=== PATIENT | female | born 1980 | race Caucasian/White ===

== ENCOUNTER 2018-10-02 12:09 | Day surgery (SDC) | payer BC ==
[2018-10-01 16:13] VITALS: BMI 38.2
[~2018-10-02 12:09] MED LIST: ceFAZolin SODIUM 1 GM VIAL IVPB ONE
[2018-10-02] MEDS ORDERED: LIDOCAINE HCL/PF 2% SDV 5ML VIAL ONE (13:12)
[2018-10-02] MEDS ORDERED: PROPOFOL 20 ML ONE (13:12)
[2018-10-02] MEDS ORDERED: MIDAZOLAM HCL 2 MG/2 ML SINGLE DOSE VIAL ONE (13:12)
[2018-10-02] MEDS ORDERED: ONDANSETRON 4 MG/2 ML VIAL IVPUSH PRN (13:57)
[2018-10-02] MEDS ORDERED: LACTATED RINGERS SOLUTION 1,000 ML IV SCH (14:00)
--- NOTE | 2018-10-02 14:08 | HP ---
History & Physical Update - History History: No Change - Physical Physical: No Change - Assessment Assessment: No Change - Plan Plan: No Change Currently as noted:: For surgical TOP
[2018-10-02] MEDS ORDERED: ceFAZolin SODIUM 1 GM VIAL ONE (14:30)
[2018-10-02] MEDS ORDERED: ceFAZolin SODIUM 1 GM VIAL IVPB ONE (14:31)
[2018-10-02 15:06] VITALS: TEMP 98.3
--- NOTE | 2018-10-02 15:07 | OP ---
Operative Note - Note: Operative Date: 10/02/18 Pre-Operative Diagnosis: Surgical termination of pregancy Operation: Suction, D&C Findings: Small AV uterus, POC noted. No RPOC after procedure Post-Operative Diagnosis: Same as Pre-op Surgeon: Jose Elias Jones Anesthesiologist/AUDIT CONSULTANT: Anibal Joshi Anesthesia: General Specimens Removed: POC Estimated Blood Loss (mls): 30 Blood Volume Replaced (mls): 0 Fluid Volume Replaced (mls): 600 Operative Report Dictated: Yes
[2018-10-02 17:03] VITALS: BP 133/89; PULSE 96
--- NOTE | 2018-10-03 00:17 | OP ---
DATE OF OPERATION: 10/02/2018 PREOPERATIVE DIAGNOSIS: Surgical . POSTOPERATIVE DIAGNOSIS: Surgical . PROCEDURE: Suction dilation and curettage. SURGEON: Winnie Doran M.D. ANESTHESIOLOGIST: Anibal Joshi M.D. ANESTHESIA: General. COMPLICATIONS: None. ESTIMATED BLOOD LOSS: 30 mL. INTRAVENOUS FLUIDS: 600 mL. PATHOLOGY: Products of conception. FINDINGS: Examination under anesthesia revealed a small anteverted uterus, freely mobile within pelvis, no pelvic or adnexal masses. Products of conception were noted during suction curettage. No retained products of conception were observed at the end of the procedure. DESCRIPTION OF PROCEDURE: The patient was met preoperatively. Risks, benefits, and alternatives of surgery were discussed in detail. All questions were answered. The patient was then brought to the OR with the IV running. She was placed on the surgical table in the supine position. The general anesthesia was achieved without difficulty. The patient was then placed in a dorsal lithotomy position using adjustable Isaac stirrups. She was examined under anesthesia with the findings as described above. The patient was then prepped and draped in the usual sterile fashion. A timeout procedure was conducted as per standard protocol. A sterile speculum was introduced inside the patient's vagina with good visualization of the cervix. The cervix was grasped with a single-toothed tenaculum. The cervical os was dilated to accommodate a size 23 Núñez dilator. A 7 mm suction curet was then used to evacuate the uterine contents. Once the suction curettage was completed, a sharp curet was introduced into the uterine cavity and no retained products of conception were noted. At that point, all of the instruments were removed from the patient. Sponge, lap, and needle counts were correct. Good hemostasis was confirmed. The patient was returned to supine position. She was transferred to recovery room, awake and in stable condition. WINNIE DORAN M.D. MINE/[id number]
--- NOTE | 2018-10-04 15:25 | PATH ---
Surgical Pathology Report Patient Name: ROBLES CHRISTIAN [facility]. Rec. #: [id number] /Age/Gender: 1980 (Age: 38) / F Account: [id number] Location: [facility] SURGICAL Taken: 10/02/2018 Received: 10/03/2018 Reported: 10/04/2018 Physicians: Jose Elias Jones M.D. Specimen(s) Received PRODUCTS OF CONCEPTION Clinical History Unwanted Final Diagnosis PRODUCTS OF CONCEPTION, SUCTION DILATION AND CURETTAGE: IMMATURE CHORIONIC VILLI, DECIDUA, AND GESTATIONAL ENDOMETRIUM CONSISTENT WITH PRODUCTS OF CONCEPTION. BENIGN CERVICAL SQUAMOUS MUCOSA. Electronically Signed Gaby Palma M.D. Gross Description Received in formalin labeled "products of conception," is an 8.0 x 6.0 x 0.7 cm aggregate of dhillon red soft tissue fragments. No definite villous tissue or somatic tissue is identified. A industrial relations representative portion is submitted in 3 cassettes. /10/03/2018 saudi10/03/2018
== END 2018-10-02 17:10 | disposition home or self-care (01) ==
LOC: JASU-SURG 12:09
PROVIDERS: ATTEND Obstetrics & Gynecology
PROC: 10A07ZZ Abortion of Products of Conception, Via Natural or Artificial Opening (ICD-10-PCS; principal; 2018-10-02 13:45)
DX: Z33.2 Encounter for elective termination of pregnancy (principal)
CPT/HCPCS: 86850; 86900; 86901; 88304-TC; 94760

== ENCOUNTER 2019-01-15 13:25 | Day surgery (SDC) | payer BC ==
[2019-01-14 16:14] VITALS: BMI 44.9
[2019-01-15] MEDS ORDERED: MIDAZOLAM HCL 2 MG/2 ML SINGLE DOSE VIAL ONE (14:29)
[2019-01-15] MEDS ORDERED: DEXAMETHASONE SOD PHOSPHATE 4 MG/1 ML VIAL ONE (14:36)
[2019-01-15] MEDS ORDERED: PROPOFOL 20 ML ONE (14:39)
[2019-01-15] MEDS ORDERED: ROCURONIUM BROMIDE 50 MG/5 ML VIAL ONE (14:40)
[2019-01-15] MEDS ORDERED: GLYCOPYRROLATE 0.2 MG/1 ML VIAL ONE (15:00)
[2019-01-15] MEDS ORDERED: NEOSTIGMINE METHYLSULFATE 0.5 MG/ML - 10 ML MDV ONE (15:00)
[2019-01-15] MEDS ORDERED: KETOROLAC TROMETHAMINE 30 MG/1 ML VIAL ONE (15:05)
[2019-01-15] MEDS ORDERED: ONDANSETRON 4 MG/2 ML VIAL IVPUSH PRN (15:11)
[2019-01-15] MEDS ORDERED: oxyCODONE HCL 5 MG TABLET PO PRN (15:11)
[2019-01-15] MEDS ORDERED: LACTATED RINGERS SOLUTION 1,000 ML IV SCH (15:15)
[2019-01-15] MEDS ORDERED: ceFAZolin SODIUM 1 GM VIAL IVPB ONE (15:40)
[2019-01-15] MEDS ORDERED: BUPIVACAINE HCL/PF 0.5% (5MG/ML) 10 ML VIAL IJ ONE (16:06)
--- NOTE | 2019-01-15 17:25 | OP ---
Operative Note - Note: Operative Date: 01/15/19 Pre-Operative Diagnosis: sterilization, obesity Operation: Laparoscopy, bilateral salpingectomy, excision of left ovarian mass Findings: Normal uterus, normal fallopian tubes, normal left ovary, firm and complex right ovarian mass ~2cm Post-Operative Diagnosis: Other (sterilization, obesity, right adnexal mass) Surgeon: Jose Elias Jones Feed Grinder: Teofilo Santizo Anesthesiologist/WEB CONTENT PRODUCER: Robson Frias Anesthesia: General Specimens Removed: Left and right Fallopian tubes, right ovarian mass Estimated Blood Loss (mls): 10 Drains & Tubes with Location: [place] Cath Drains, Volume Out (mls): 75 Blood Volume Replaced (mls): 0 Fluid Volume Replaced (mls): 800 Operative Report Dictated: Yes
[2019-01-15 18:56] VITALS: BP 114/70; PULSE 97; TEMP 97.8
--- NOTE | 2019-01-16 01:02 | OP ---
DATE OF OPERATION: 01/15/2019 PREOPERATIVE DIAGNOSIS: Sterilization, morbid obesity. POSTOPERATIVE DIAGNOSIS: Sterilization, morbid obesity, right adnexal mass. PROCEDURE: Laparoscopy, bilateral salpingectomy, excision of the left ovarian mass. SURGEON: Jose Elias Jones M.D. DIRECTOR POST: Dara Santizo M.D. ANESTHESIOLOGIST: Robson Frias M.D. ANESTHESIA: General. COMPLICATIONS: None. ESTIMATED BLOOD LOSS: 10 mL INTRAVENOUS FLUIDS: 800 mL URINE OUTPUT: 75 mL of clear urine at the end of the procedure FINDINGS: Examination under anesthesia was performed prior to surgery and revealed a normal cervix with a small anteverted uterus. Pelvic or adnexal structures could not be palpated due to patient's body habitus. During laparoscopy, the uterus was noted to be normal. Both fallopian tubes were noted to be normal. The left ovary was also normal and unremarkable. The right ovary had an exophytic solid and complex appearing ovarian mass. The visualized segments of the bowel, liver, and stomach appear to be within normal limits. DESCRIPTION OF PROCEDURE: The patient was met preoperatively. Risks, benefits, and alternatives of surgery were discussed in details. All questions were answered. The patient asked appropriate questions, and all questions were answered to her satisfaction. The patient then requested to proceed with surgery. She was brought to the OR with the IV running. The patient was placed on a surgical table in the supine position. The general endotracheal anesthesia was achieved without difficulty. The patient was then placed in a dorsal lithotomy position using adjustable Isaac stirrups. She was examined under anesthesia with the findings as described above. The patient was then prepped and draped in the usual sterile fashion. A timeout procedure was conducted as per standard protocol. A sterile speculum was then introduced inside the vagina. The cervix was visualized. The endocervical canal was dilated to accommodate a size 15 Núñez dilator. A HUMI uterine manipulator was then introduced without complications using a sterile technique. A speculum was then removed from the patient. A Mosley catheter was then inserted inside the bladder with the sterile technique and left to drain to gravity. The surgeons then regloved and proceeded with the laparoscopy. A 5-mm intraumbilical incision was made with the knife. A Veress needle was introduced through the umbilical incision. The introduction of the Veress needle was not successful, and the Veress needle was removed. At that point, an Optiview trocar was advanced under direct visualization through the umbilical incision. Atraumatic placement was confirmed. Once the trocar was placed, and the placement was confirmed, pneumoperitoneum was achieved without difficulty. Intraabdominal pressure was limited to 20 mmHg. Survey of the abdomen and pelvis revealed a large amount of adipose tissue around the peritoneal cavity, bowel, and anterior abdominal wall. Visualized segments of bowel, liver, and stomach appeared to be within normal limits. The uterus was noted to be normal and slightly anteverted. The fallopian tubes were within normal limits. The left ovary appeared to be unremarkable. The right ovary contained an exophytic 2-cm complex mass. At that point, a 5-mm incision was made in the right lower quadrant of the patient's abdomen. A 5-mm trocar was introduced without complications under direct visualization. A 10-mm incision was then made in the left lower quadrant, and a 10-mm trocar was introduced under direct visualization. Both fallopian tubes were then excised using a LigaSure device. Good hemostasis was maintained. Afterwards, the right ovarian mass was carefully dissected away form the right ovary maintaining good hemostasis. The right ovarian mass was placed inside the endobag and retrieved completely. All of the tissue was sent to pathology for evaluation. Once again, good hemostasis was noted. At that point, the left lower quadrant incision was closed using a 0 Vicryl suture for the fascia. All of the instruments were removed from the patient. The pneumoperitoneum was introduced. Sponge, lap, needle, and instrument counts were correct. The skin incisions were closed using a 4-0 Biosyn suture with a subcutaneous stitch. The HUMI was removed from the patient. The patient was returned to supine position, and she was transferred to recovery room awake and in stable condition. Anila [id number]
--- NOTE | 2019-01-17 18:30 | PATH ---
Surgical Pathology Report Patient Name: APPLE CHRISTIAN [facility]. Rec. #: [id number] /Age/Gender: 1980 (Age: 38) / F Account: [id number] Location: [facility] SURGICAL Taken: 01/15/2019 Received: 01/16/2019 Reported: 01/17/2019 Physicians: Jose Elias Jones M.D. Specimen(s) Received A: RIGHT FALLOPIAN TUBE B: LEFT FALLOPIAN TUBE C: RIGHT OVARIAN MASS Clinical History Voluntary sterilization Final Diagnosis A. FALLOPIAN TUBE, RIGHT, LAPAROSCOPIC SALPINGECTOMY: FALLOPIAN TUBE WITH PARATUBAL CYST (INCLUDING FIMBRIATED END AND FULL LUMINAL PORTION). B. FALLOPIAN TUBE, LEFT, LAPAROSCOPIC SALPINGECTOMY: FALLOPIAN TUBE WITH PARATUBAL CYST (INCLUDING FIMBRIATED END AND FULL LUMINAL PORTION). C. OVARIAN CYST, RIGHT, CYSTECTOMY: CONSISTENT WITH BENIGN CYSTIC FOLLICLE. Electronically Signed Gaby Palma M.D. Gross Description A. Received in formalin labeled "right fallopian tube," is a 4.5 cm in length fimbriated fallopian tube. The outer surface is dhillon lezama and smooth. Sectioning reveals an unremarkable lumen. Benefits Advisor sections are submitted in 2 cassettes as follows: 1-fimbria; 2-cross section of fallopian tube. B. Received in formalin labeled "left fallopian tube," is a 5.5 cm in length fimbriated fallopian tube. The outer surface is dhillon lezama and smooth. Sectioning reveals an unremarkable lumen. Benefits Advisor sections are submitted in 2 cassettes as follows: 1-fimbria; 2-cross sections of fallopian tube. C. Received in formalin labeled "right ovarian cyst," is a 2.0 x 1.5 x 1.5 cm dhillon, intact cystic structure. The outer surfaces are dhillon and smooth. The lumen contains clear serous fluid. The inner lining is smooth. No excrescences are identified. The specimen is entirely submitted in 2 cassettes. 01/16/201901/16/2019
== END 2019-01-15 19:15 | disposition home or self-care (01) ==
LOC: JASU-SURG 13:25
PROVIDERS: ATTEND Obstetrics & Gynecology
PROC: 0UB04ZZ Excision of Right Ovary, Percutaneous Endoscopic Approach (ICD-10-PCS; 2019-01-15)
PROC: 0U574ZZ Destruction of Bilateral Fallopian Tubes, Percutaneous Endoscopic Approach (ICD-10-PCS; principal; 2019-01-15 15:00)
DX: Z30.2 Encounter for sterilization (principal); N83.201 Unspecified ovarian cyst, right side; E66.01 Morbid (severe) obesity due to excess calories
CPT/HCPCS: 84703; 86850; 86900; 86901; 88302-TC; 88304-TC; 94010; 94760

== ENCOUNTER 2019-03-04 18:31 | Emergency (ER) | payer BC ==
[2019-03-04 18:37] VITALS: BP 123/77; PULSE 99; TEMP 98.2; BMI 41.9
[2019-03-04] MEDS ORDERED: MECLIZINE HCL 25 MG TABLET (FP) PO ONE (20:05)
[2019-03-04] MEDS ORDERED: ONDANSETRON 4 MG/2 ML VIAL IVPUSH ONE (20:06)
[2019-03-04] MEDS ORDERED: SODIUM CHLORIDE 1,000 ML IV STA (20:06)
[2019-03-04] MEDS ORDERED: MECLIZINE HCL 12.5 MG TABLET ONE (20:13)
[2019-03-04 20:21] LABS: BASO % 1.1 % (0-2.0); EOS % 2.2 % (0-4.5); HEMATOCRIT 36.4 % (32.4-45.2); HEMOGLOBIN 12.2 GM/dL (10.7-15.3); LYMPH % 22.1 % (8-40); MCH 27.6 pg (25.7-33.7); MCHC 33.5 g/dl (32.0-36.0); MEAN CELL VOLUME 82.4 fl (80-96); MEAN PLT VOLUME 8.1 fl (7.5-11.1); MONO % 5.5 % (3.8-10.2); NEUT % 69.1 % (42.8-82.8); PLATELET COUNT 280 K/MM3 (134-434); RBC 4.41 M/mm3 (3.60-5.2); RDW 14.5 % (11.6-15.6); WHITE BLOOD COUNT 9.6 K/mm3 (4.0-10.0)
[2019-03-04] MEDS ORDERED: ONDANSETRON 4 MG/2 ML VIAL ONE (20:25)
[2019-03-04 20:47] LABS: ALBUMIN 3.2 g/dl (3.4-5.0); ALK PHOS 116 U/L (45-117); ANION GAP 6 MMOL/L (8-16); BILIRUBIN,TOTAL 0.2 mg/dL (0.2-1); BLOOD UREA NITROGEN 8 mg/dL (7-18); CALCIUM 8.1 mg/dL (8.5-10.1); CHLORIDE 107 mmol/L (98-107); CO2 27 mmol/L (21-32); CREATININE 0.7 mg/dL (0.55-1.3); GLUCOSE,RANDOM 99 mg/dL (74-106); INR 1.13 (0.83-1.09); POTASSIUM 4.3 mmol/L (3.5-5.1); PROTHROMBIN TIME (PATIENT) 13.3 SEC (9.7-13.0); SGOT/AST 18 U/L (15-37); SGPT/ALT 24 U/L (13-61); SODIUM 140 mmol/L (136-145); TOT PROT 6.7 g/dl (6.4-8.2)
[2019-03-04] MEDS ORDERED: METOCLOPRAMIDE HCL INJECTION 10 MG/2 ML VIAL IVPUSH ONE (23:28)
[2019-03-04] MEDS ORDERED: METOCLOPRAMIDE HCL INJECTION 10 MG/2 ML VIAL ONE (23:30)
--- NOTE | 2019-03-05 01:17 | PDOC ---
History of Present Illness - General Chief Complaint: Headache Stated Complaint: RIGHT SIDE NUMNESS Time Seen by Provider: 03/04/19 19:34 History Source: Patient Exam Limitations: No Limitations - History of Present Illness Timing/Duration: reports: other (she had c/o frontal headache since 5 am with dizziness) Past History - Past Medical History Allergies/Adverse Reactions: Allergies Allergy/AdvReac Type Severity Reaction Status Date / Time No Known Allergies Allergy Verified 03/04/19 18:37 Home Medications: Ambulatory Orders Citalopram Hydrobromide [Citalopram HBr] 10 mg PO DAILY 10/02/18 Ibuprofen [Motrin -] 600 mg PO TID PRN #21 tablet MDD 3 tabs 03/05/19 Meclizine HCl 25 mg PO QID PRN #21 tab.chew MDD 3 tabs 03/05/19 Asthma: Yes (EXERCISE INDUCED ASTHMA-DOES NOT RECALL LAST ATTACK) Cancer: No Cardiac Disorders: No CVA: No COPD: No CHF: No DVT: No Dementia: No Diabetes: No GI Disorders: No Disorders: Yes (RENAL COLIC) HTN: No Hypercholesterolemia: No Kidney Stones: Yes Liver Disease: No Psychiatric Problems: Yes (depression) Seizures: No Thyroid Disease: No - Surgical History Abdominal Surgery: No Appendectomy: No Cardiac Surgery: No Cholecystectomy: No Lung Surgery: No Neurologic Surgery: No Orthopedic Surgery: No - Suicide/Smoking/Psychosocial Hx Smoking Status: No Smoking History: Never smoked Have you smoked in the past 12 months: No Number of Cigarettes Smoked Daily: 0 Hx Alcohol Use: No Drug/Substance Use Hx: No Substance Use Type: None Hx Substance Use Treatment: No Review of Systems - Review of Systems Able to Perform ROS?: Yes Is the patient limited Yi proficient: No Constitutional: No: Symptoms Reported, See HPI, Chills, Diaphoresis, Fever, Loss of Appetite, Malaise, Night Sweats, Weakness, Weight Stable, Unintentional Wgt. Loss, Unexplained wgt Loss, Other HEENTM: No: Symptoms Reported, See HPI, Eye Pain, Blurred Vision, Tearing, Recent change in vision, Double Vision, Cataracts, Ear Pain, Ocular Prothesis, Ear Discharge, Nose Pain, Nose Congestion, Tinnitus, Nose Bleeding, Hearing Loss , Throat Pain, Throat Swelling, Mouth Pain, Dental Problems, Difficulty Swallowing, Mouth Swelling, Other Respiratory: No: Symptoms reported, See HPI, Cough, Orthopnea, Shortness of Breath, SOB with Exertion, SOB at Rest, Stridor, Wheezing, Productive cough, Hemoptysis, Other Cardiac (ROS): No: Symptoms Reported, See HPI, Chest Pain, Edema, Irregular Heart Rate, Lightheadedness, Palpitations, Syncope, Chest Tightness, Other ABD/GI: No: Symptoms Reported, See HPI, Abdominal Distended, Abd. Pain w/ defecation, Blood Streaked Bowels, Constipated, Diarrhea, Difficulty Swallowing , Nausea, Poor Appetite, Poor Fluid Intake, Rectal Bleeding, Vomiting, Indigestion, Abdominal cramping, Tarry Stools, Other : No: Symptoms Reported, See HPI, Burning, Dysuria, Discharge, Frequency, Flank Pain, Hematuria, Incontinence, Pain, Urgency, Testicular Mass, Testicular Swelling, Lesions, Testicular Pain, Other Musculoskeletal: No: Symptoms Reported, See HPI, Back Pain, Gout, Joint Pain, Joint Swelling, Muscle Pain, Muscle Weakness, Neck Pain, Joint Stiffness, Other Integumentary: No: Symptoms Reported, See HPI, Bruising, Change in Color, Change in Hair/Nails, Dryness, Erythema, Flushing, Lesions, Lumps, Pallor, Pruritus, Rash, Sweating, Other Neurological: Yes: Headache, Dizziness, Other (she felt the room spin and had difficulty walking in a straight line) Endocrine: No: Symptoms Reported, See HPI, Excessive Sweating, Flushing, Intolerance to Cold, Intolerance to Heat, Increased Hunger, Increased Thirst, Increased Urine, Unexplained Weight Gain, Unexplained Weight Loss, Change in Weight, Other Hematologic/Lymphatic: No: Symptoms Reported, See HPI, Anemia, Blood Clots, Easy Bleeding, Easy Bruising, Bleeding Diathesis, Lymph Node Abnormalities, Swollen Glands, Other *Physical Exam - Vital Signs Last Vital Signs Temp Pulse Resp BP Pulse Ox 98.2 F 99 H 20 123/77 98 03/04/19 18:33 03/04/19 18:33 03/04/19 18:33 03/04/19 18:33 03/04/19 18:33 - Physical Exam General Appearance: Yes: Appropriately Dressed, Obese HEENT: positive: EOMI, ELIDA, Normal ENT Inspection, Normal Voice Neck: positive: Supple Respiratory/Chest: positive: Lungs Clear Cardiovascular: positive: Regular Rhythm, Regular Rate Gastrointestinal/Abdominal: positive: Normal Bowel Sounds, Soft Musculoskeletal: positive: Normal Inspection Extremity: positive: Normal Inspection, Normal Range of Motion Integumentary: positive: Normal Color, Warm Neurologic: positive: cook box filler II-XII NML intact, Fully Oriented, Alert, Normal Response, Motor Strength 03/30 ED Treatment Course - LABORATORY CBC & Chemistry Diagram: 03/04/19 20:10 03/04/19 20:10 - ADDITIONAL ORDERS Additional order review: Laboratory Results 03/04/19 03/04/19 03/04/19 20:10 20:10 20:10 PT with INR 13.30 H INR 1.13 H Sodium 140 Potassium 4.3 Chloride 107 Carbon Dioxide 27 Anion Gap 6 L BUN 8 Creatinine 0.7 Creat Clearance w eGFR 94.16 Random Glucose 99 Calcium 8.1 L Total Bilirubin 0.2 AST 18 ALT 24 Alkaline Phosphatase 116 Total Protein 6.7 Albumin 3.2 L Serum , Qual Negative 03/04/19 20:10 RBC 4.41 MCV 82.4 MCHC 33.5 RDW 14.5 MPV 8.1 Neutrophils % 69.1 Lymphocytes % 22.1 D Monocytes % 5.5 Eosinophils % 2.2 Basophils % 1.1 - RADIOLOGY Radiology Studies Ordered: Category Date Time Status HEAD CT WITHOUT CONTRAST [CT] Stat CT Scan 03/04/19 21:29 Completed - Medications Given in the ED: ED Medications Discontinued Medications Generic Name Dose Route Start Last Admin Trade Name Freq PRN Reason Stop Dose Admin Diphenhydramine HCl 25 mg 03/04/19 23:29 03/04/19 23:41 Benadryl Injection - IVPUSH 03/04/19 23:30 25 mg ONCE ONE Administration Sodium Chloride 1,000 mls @ 1,000 mls/hr 03/04/19 20:06 03/04/19 20:18 Normal Saline - IV 03/04/19 21:05 1,000 mls/hr ASDIR STA Administration Meclizine HCl 25 mg 03/04/19 20:05 03/04/19 20:18 Antivert - PO 03/04/19 20:06 25 mg ONCE ONE Administration Metoclopramide HCl 10 mg 03/04/19 23:28 03/04/19 23:41 Reglan Injection - IVPUSH 03/04/19 23:29 10 mg ONCE ONE Administration Ondansetron HCl 4 mg 03/04/19 20:06 03/04/19 20:37 Zofran Injection IVPUSH 03/04/19 20:07 4 mg ONCE ONE Administration Medical Decision Making - Medical Decision Making 03/05/19 02:12 pt had dizziness since waking this morning and felt the room spinning. She also had a frontal headache 'NIHSS was zero she had no drift,no ataxia on exam, no motor weakness,no confusion, no vomiting, no facial droop and no speech difficulties ct scn of head no acute intracraial pathology cbc and chemistries unremarkable no fever,no chills pt's symptoms resolved pt was eating and ambulating with ease and discharged home imp benign positional vertigo/plan see Dr Smalls this week *DC/Admit/Observation/Transfer Diagnosis at time of Disposition: Vertigo Headache Qualifiers: Headache type: unspecified Headache chronicity pattern: unspecified pattern Intractability: not intractable Qualified Code(s): R51 - Headache - Discharge Dispostion Disposition: HOME Condition at time of disposition: Stable - Prescriptions Prescriptions: Ibuprofen [Motrin -] 600 mg PO TID PRN #21 tablet MDD 3 tabs PRN Reason: Headache Meclizine HCl 25 mg PO QID PRN #21 tab.chew MDD 3 tabs PRN Reason: Vertigo - Referrals Referrals: Anastasia Cade MD [Primary Care Provider] - - Patient Instructions Printed Discharge Instructions: DI for Vertigo, DI for Headache Additional Instructions: please follow up with your physician this week please fruit or nut picker your medications at your pharmacy return for any worsening symptoms - Post Discharge Activity Forms/Work/School Notes: Back to Work
== END 2019-03-05 02:12 | disposition home or self-care (01) ==
LOC: JER 18:31
PROC: 3E0337Z Introduction of Electrolytic and Water Balance Substance into Peripheral Vein, Percutaneous Approach (ICD-10-PCS; principal; 2019-03-04)
PROC: 3E033GC Introduction of Other Therapeutic Substance into Peripheral Vein, Percutaneous Approach (ICD-10-PCS; 2019-03-04)
PROC: 3E033GC Introduction of Other Therapeutic Substance into Peripheral Vein, Percutaneous Approach (ICD-10-PCS; 2019-03-04)
PROC: 3E033GC Introduction of Other Therapeutic Substance into Peripheral Vein, Percutaneous Approach (ICD-10-PCS; 2019-03-04)
DX: R51 Headache (principal); R42 Dizziness and giddiness
CPT/HCPCS: 36415; 70450-TC; 80053; 84703; 85025; 85610; 99282-25; J7030

== ENCOUNTER 2019-08-19 15:46 | Emergency (ER) | payer BC ==
[2019-08-19 16:24] VITALS: BMI 39.9
--- NOTE | 2019-08-19 16:25 | PDOC ---
History of Present Illness - General Chief Complaint: Syncope/Near Syncope Stated Complaint: FALL Time Seen by Provider: 08/19/19 16:04 History Source: Patient Exam Limitations: No Limitations - History of Present Illness Initial Comments: 08/19/19 16:23 39 yo F, , PMH b/l salpingectomy with removal of 2 cm complex R ovarian mass (01/15/2019), reportedly benign cystic follicle on pathological examination , sports-induced asthma, depression, kidney stones s/p lithotripsy, cholelithiasis, hx vertigo, presenting after syncope. States that she was at work and had LOC, no prodromal symptoms, unsure how long she was down. States that she fell down and hit the back of her head. Endorses R sided SAUNDERS prior to syncope, worse after, associated with N w/o vomiting, photophobia, and phonophobia. Also reports "room spinning" sensation prior to syncope, which is ongoing. Denies history of migraines. Further reports intermittent RLQ pain for the past 2-3 weeks, currently feels this pain. Denies CP, SOB, back pain, urinary symptoms. Endorses hot/cold flashes and chronic constipation. LMP about 1 week ago. Past History - Past Medical History Allergies/Adverse Reactions: Allergies Allergy/AdvReac Type Severity Reaction Status Date / Time No Known Allergies Allergy Verified 03/04/19 18:37 Home Medications: Ambulatory Orders Citalopram Hydrobromide [Citalopram HBr] 10 mg PO DAILY 10/02/18 Ibuprofen [Motrin -] 600 mg PO TID PRN #21 tablet MDD 3 tabs 03/05/19 Meclizine HCl 25 mg PO QID PRN #21 tab.chew MDD 3 tabs 03/05/19 Meclizine HCl [Antivert -] 25 mg PO TID PRN #21 tablet MDD 3 08/19/19 Asthma: Yes (EXERCISE INDUCED ASTHMA-DOES NOT RECALL LAST ATTACK) Cancer: No Cardiac Disorders: No CVA: No COPD: No CHF: No DVT: No Dementia: No Diabetes: No GI Disorders: No Disorders: Yes (RENAL COLIC) HTN: No Hypercholesterolemia: No Kidney Stones: Yes Liver Disease: No Psychiatric Problems: Yes (depression) Seizures: No Thyroid Disease: No - Surgical History Abdominal Surgery: No Appendectomy: No Cardiac Surgery: No Cholecystectomy: No Lung Surgery: No Neurologic Surgery: No Orthopedic Surgery: No - Psycho Social/Smoking Cessation Hx Smoking Status: No Smoking History: Never smoked Have you smoked in the past 12 months: No Number of Cigarettes Smoked Daily: 0 Hx Alcohol Use: No Drug/Substance Use Hx: No Substance Use Type: None Hx Substance Use Treatment: No Review of Systems - Review of Systems Constitutional: Yes: Chills. No: Diaphoresis, Fever, Weakness HEENTM: No: Blurred Vision, Difficulty Swallowing Respiratory: No: Cough, Shortness of Breath Cardiac (ROS): Yes: Syncope. No: Chest Pain, Edema, Irregular Heart Rate, Lightheadedness ABD/GI: Yes: Constipated (chronic), Nausea. No: Abdominal Distended, Diarrhea, Difficulty Swallowing, Vomiting : No: Burning, Dysuria, Discharge, Frequency, Flank Pain, Hematuria Musculoskeletal: No: Back Pain, Neck Pain Integumentary: No: Symptoms Reported Neurological: Yes: Headache (R sided, photophobia, phonophobia), Dizziness. No : Numbness, Paresthesia, Weakness Endocrine: No: Symptoms Reported Hematologic/Lymphatic: No: Symptoms Reported *Physical Exam - Vital Signs Last Vital Signs Temp Pulse Resp BP Pulse Ox 98.3 F 87 18 133/101 H 100 08/19/19 15:58 08/19/19 15:58 08/19/19 15:58 08/19/19 15:58 08/19/19 15:58 - Physical Exam General Appearance: Yes: Nourished, Appropriately Dressed, Apparent Distress HEENT: positive: EOMI, ELIDA, Normal ENT Inspection Neck: positive: Trachea midline, Supple Respiratory/Chest: positive: Lungs Clear, Normal Breath Sounds. negative: Chest Tender, Respiratory Distress, Accessory Muscle Use Cardiovascular: positive: Regular Rhythm, Regular Rate Gastrointestinal/Abdominal: positive: Normal Bowel Sounds, Tender (RLQ, periumbilical), Soft Musculoskeletal: positive: Normal Inspection. negative: CVA Tenderness Extremity: positive: Normal Capillary Refill Integumentary: positive: Normal Color, Dry, Warm Neurologic: positive: cooker soda II-XII NML intact, Fully Oriented, Alert, Normal Mood/ Affect, Normal Response, Motor Strength 5/5, Finger to Nose, Other (b/l nystagmus) ED Treatment Course - LABORATORY CBC & Chemistry Diagram: 08/19/19 17:21 08/19/19 17:21 Medical Decision Making - Medical Decision Making 08/19/19 16:45 Concern for this RLQ considering history of 2cm complex R ovarian mass. Further concern considering syncope and head trauma for cardiac/neurological etiology. - CT head non con - CBC, CMP, coags, EKG, trop - UA, U preg - CT abd/pelvis pending Cr and test results - Reglan + fluids for headache pending results - ctm 08/19/19 17:20 EKG reviewed, sinus at 85 bpm. 08/19/19 19:20 TVUS normal, CT head normal. Patient continues to complain about headache, will give Reglan and Benadryl. 08/19/19 22:00 Patient signed out to Dr. Pizarro, f/u CT scan *DC/Admit/Observation/Transfer Diagnosis at time of Disposition: Vertigo Abdominal pain Qualifiers: Abdominal location: right lower quadrant Qualified Code(s): R10.31 - Right lower quadrant pain - Discharge Dispostion Disposition: HOME Condition at time of disposition: Stable - Prescriptions Prescriptions: Meclizine HCl [Antivert -] 25 mg PO TID PRN #21 tablet MDD 3 PRN Reason: Vertigo - Referrals Referrals: Anastasia Cade MD [Primary Care Provider] - - Patient Instructions Printed Discharge Instructions: DI for Vertigo, DI for Abdominal Pain-Adult Additional Instructions: please 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 your medication at your pharmacy please follow up with your regular physician - Post Discharge Activity Forms/Work/School Notes: Back to Work Discharge - Discharge Information Problems reviewed: Yes Clinical Impression/Diagnosis: Vertigo Abdominal pain Qualifiers: Abdominal location: right lower quadrant Qualified Code(s): R10.31 - Right lower quadrant pain Condition: Stable Disposition: HOME - Additional Discharge Information Prescriptions: Meclizine HCl [Antivert -] 25 mg PO TID PRN #21 tablet MDD 3 PRN Reason: Vertigo - Follow up/Referral Referrals: Anastasia Cade MD [Primary Care Provider] - - Patient Discharge Instructions Patient Printed Discharge Instructions: DI for Vertigo, DI for Abdominal Pain- Adult Additional Instructions: please 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 your medication at your pharmacy please follow up with your regular physician - Post Discharge Activity Work/Back to School Note: Back to Work
[2019-08-19] MEDS ORDERED: LACTATED RINGERS SOLUTION 1000 ML INFUS.BAG IV ONE (16:33)
[2019-08-19] MEDS ORDERED: METOCLOPRAMIDE HCL INJECTION 10 MG/2 ML VIAL IVPB ONE (16:33)
[2019-08-19] MEDS ORDERED: ACETAMINOPHEN 1000 MG/100 ML VIAL (NON FORMULARY) IVPB ONE (17:12)
[2019-08-19 17:21] LABS: PH,URINE 6.5 (5.0-8.0); URINE APPEARANCE CLEAR; URINE BILIRUBIN NEGATIVE (NEGATIVE); URINE COLOR YELLOW; URINE GLUCOSE (UA) NEGATIVE (NEGATIVE); URINE KETONE NEGATIVE (NEGATIVE); URINE LEUK ESTERASE TRACE (NEGATIVE); URINE NITRITE NEGATIVE (NEGATIVE); URINE PROTEIN NEGATIVE (NEGATIVE); URINE UROBILINOGEN 0.2 mg/dL (0.2-1.0)
[2019-08-19] MEDS ORDERED: ACETAMINOPHEN INJECTION 100 ML IVPB ONE (17:26)
[2019-08-19 17:45] LABS: BASO % 0.5 % (0-2.0); EOS % 2.8 % (0-4.5); HEMATOCRIT 37.1 % (32.4-45.2); HEMOGLOBIN 12.2 GM/dL (10.7-15.3); LYMPH % 22.3 % (8-40); MCH 27.4 pg (25.7-33.7); MEAN CELL VOLUME 83.1 fl (80-96); MEAN PLT VOLUME 8.4 fl (7.5-11.1); MONO % 5.1 % (3.8-10.2); NEUT % 69.3 % (42.8-82.8); PLATELET COUNT 267 K/MM3 (134-434); RBC 4.47 M/mm3 (3.60-5.2); RDW 14.5 % (11.6-15.6); WHITE BLOOD COUNT 9.4 K/mm3 (4.0-10.0)
--- NOTE | 2019-08-19 18:02 | PDOC ---
Attending Attestation - Resident Resident Name: Robert Mclaughlin - ED Attending Attestation I have performed the following: I have examined & evaluated the patient, The case was reviewed & discussed with the resident, I agree w/resident's findings & plan, Exceptions are as noted - HPI HPI: 08/19/19 18:02 this 39 yo female had a syncopal episode and RLQ tenderness today HPI she was at school and had had a persistent headache all day, but then became dizzy. She fell off the chair. She was on the floor in the school and school nurse was called. She says she still has some dizziness and persistent headache. She has no gross focal neural deficits. 08/19/19 19:23 this 39 -year-old female complaining of a daylong headache. Head normocephalic, atraumatic, no lacerations or hematomas noted. Eyes pupils are equal, reactive to light and accommodation ,eomi neck supple lungs cts b/l cvs [id number] abd protuberant skin warm and dry extremities no deformities neuro axox3,motor strength 5/5 b/l 08/19/19 22:48 - Physicial Exam PE: 08/19/19 22:06 please see the above physical exam - Medical Decision Making 08/19/19 18:02 psh s/p laparoscopic salpingectomy of RT and L fallopian rubes and removal of benign rt cystic follicle 08/19/19 19:26 CBC does not show any significant leukocytosis or anemia. Chemistries are unremarkable. Electrolytes are within normal limits, LFTs are unremarkable and her kidney function is normal. the head without contrast shows a normal CT scan of the head with no evidence of acute intracranial pathology. Transvaginal ultrasound is essentially normal pelvic sonogram The uterus is normal in size, no uterine masses are seen. Normal appearing endometrium of 7 mm thickness. The right ovary is normal size and texture with arterial flow documented. . There is a small cyst measuring 1.5 cm x 1.4 cm x 1 cm The left ovary could not be identified. 08/19/19 22:49 ct scan abd/pel w constrast: no SBO,no fluid collections,no pelvic masses, no lymphadenopathy cholilithiasis diffuse fatty liver mild splnomegaly no evidence of appendicitis or acute pathology within the abdomen or pelvis imp vertigo/pelvic discomfort negative head ct, no focal neuro deficits 08/19/19 22:57 RX meclizine sent to her phamacy
[2019-08-19 18:09] LABS: INR 1.1 (0.83-1.09)
[2019-08-19 18:10] LABS: ALBUMIN 3.5 g/dl (3.4-5.0); ALK PHOS 131 U/L (45-117); ANION GAP 7 MMOL/L (8-16); BILIRUBIN,TOTAL 0.2 mg/dL (0.2-1); CALCIUM 9.3 mg/dL (8.5-10.1); CHLORIDE 104 mmol/L (98-107); CO2 30 mmol/L (21-32); CREATININE 0.7 mg/dL (0.55-1.3); GLUCOSE,RANDOM 89 mg/dL (74-106); POTASSIUM 4.2 mmol/L (3.5-5.1); SGOT/AST 18 U/L (15-37); SGPT/ALT 28 U/L (13-61); SODIUM 141 mmol/L (136-145)
[2019-08-19 18:11] LABS: ACTIVATED PTT 32.5 SECONDS (25.2-36.5)
[2019-08-19 19:03] LABS: EPI CELLS 0.8 /HPF (0-5/HPF); HYALINE CASTS 0 /lpf (0-8); URINE BACTERIA FEW /hpf (NEGATIVE); URINE RBC 1.1 /hpf (0-4); URINE WBC 2.5 /hpf (0-5)
[2019-08-19] MEDS ORDERED: METOCLOPRAMIDE HCL INJECTION 10 MG/2 ML VIAL IVPUSH ONE (19:15)
[2019-08-19] MEDS ORDERED: METOCLOPRAMIDE HCL INJECTION 10 MG/2 ML VIAL ONE (19:36)
[2019-08-19] MEDS ORDERED: MECLIZINE HCL 25 MG TABLET (FP) PO ONE (19:38)
[2019-08-19] MEDS ORDERED: MECLIZINE HCL 25 MG TABLET (FP) ONE (20:04)
[2019-08-19 22:48] VITALS: BP 114/61; PULSE 70; TEMP 97.8
--- NOTE | 2019-08-19 23:01 | PDOC ---
*Physical Exam - Vital Signs Last Vital Signs Temp Pulse Resp BP Pulse Ox 97.8 F 70 20 114/61 98 08/19/19 22:45 08/19/19 22:45 08/19/19 22:45 08/19/19 22:45 08/19/19 22:45 ED Treatment Course - LABORATORY CBC & Chemistry Diagram: 08/19/19 17:21 08/19/19 17:21 - ADDITIONAL ORDERS Additional order review: Laboratory Results 08/19/19 08/19/19 08/19/19 17:21 17:21 17:21 PT with INR 13.00 INR 1.10 H PTT (Actin FS) 32.5 Sodium 141 Potassium 4.2 Chloride 104 Carbon Dioxide 30 Anion Gap 7 L BUN 9.0 Creatinine 0.7 Est GFR (CKD-EPI)AfAm 127.39 Est GFR (CKD-EPI)NonAf 109.91 Random Glucose 89 Calcium 9.3 Total Bilirubin 0.2 AST 18 ALT 28 Alkaline Phosphatase 131 H Troponin I < 0.02 Total Protein 7.0 Albumin 3.5 Lipase 100 Urine Color Urine Appearance Urine pH Ur Specific [place] Urine Protein Urine Glucose (UA) Urine Ketones Urine Blood Urine Nitrite Urine Bilirubin Urine Urobilinogen Ur Leukocyte Esterase Urine WBC (Auto) Urine RBC (Auto) Urine Casts (Auto) U Epithel Cells (Auto) Urine Bacteria (Auto) Urine HCG, Qual 08/19/19 08/19/19 16:10 16:10 PT with INR INR PTT (Actin FS) Sodium Potassium Chloride Carbon Dioxide Anion Gap BUN Creatinine Est GFR (CKD-EPI)AfAm Est GFR (CKD-EPI)NonAf Random Glucose Calcium Total Bilirubin AST ALT Alkaline Phosphatase Troponin I Total Protein Albumin Lipase Urine Color Yellow Urine Appearance Clear Urine pH 6.5 Ur Specific [place] 1.004 L Urine Protein Negative Urine Glucose (UA) Negative Urine Ketones Negative Urine Blood Negative Urine Nitrite Negative Urine Bilirubin Negative Urine Urobilinogen 0.2 Ur Leukocyte Esterase Trace Urine WBC (Auto) 2.5 Urine RBC (Auto) 1.1 Urine Casts (Auto) 0 U Epithel Cells (Auto) 0.8 Urine Bacteria (Auto) Few Urine HCG, Qual Negative 08/19/19 17:21 RBC 4.47 MCV 83.1 MCHC 33.0 RDW 14.5 MPV 8.4 Neutrophils % 69.3 Lymphocytes % 22.3 Monocytes % 5.1 Eosinophils % 2.8 Basophils % 0.5 - Medications Given in the ED: ED Medications Discontinued Medications Generic Name Dose Route Start Last Admin Trade Name [place] PRN Reason Stop Dose Admin Acetaminophen 1,000 mg 08/19/19 17:12 08/19/19 17:30 Ofirmev Injection - IVPB 08/19/19 17:13 1,000 mg ONCE ONE Administration Diphenhydramine HCl 25 mg 08/19/19 19:16 08/19/19 19:49 Benadryl Injection - IVPUSH 08/19/19 19:17 25 mg ONCE ONE Administration Lactated Ringer's 1,000 ml 08/19/19 16:33 08/19/19 17:25 Lactated Ringers Solution IV 08/19/19 16:34 1,000 ml ONCE ONE Administration Meclizine HCl 25 mg 08/19/19 19:38 08/19/19 20:13 Antivert - PO 08/19/19 19:39 25 mg ONCE ONE Administration Metoclopramide HCl 10 mg 08/19/19 16:33 08/19/19 17:32 Reglan Injection - IVPB 08/19/19 16:34 Not Given ONCE ONE Metoclopramide HCl 10 mg 08/19/19 19:15 08/19/19 19:49 Reglan Injection - IVPUSH 08/19/19 19:16 10 mg ONCE ONE Administration *DC/Admit/Observation/Transfer Diagnosis at time of Disposition: Vertigo Abdominal pain Qualifiers: Abdominal location: right lower quadrant Qualified Code(s): R10.31 - Right lower quadrant pain - Discharge Dispostion Disposition: HOME Condition at time of disposition: Stable - Prescriptions Prescriptions: Meclizine HCl [Antivert -] 25 mg PO TID PRN #21 tablet MDD 3 PRN Reason: Vertigo - Referrals Referrals: Anastasia Cade MD [Primary Care Provider] - - Patient Instructions Printed Discharge Instructions: DI for Vertigo, DI for Abdominal Pain-Adult Additional Instructions: please lemon picker your medication at your pharmacy please follow up with your regular physician - Post Discharge Activity Forms/Work/School Notes: Back to Work
--- NOTE | 2019-08-20 11:04 | EKG ---
Test Reason : Blood Pressure : / mmHG Vent. Rate : 085 BPM Atrial Rate : 085 BPM P-R Int : 156 ms QRS Dur : 084 ms QT Int : 368 ms P-R-T Axes : 019 032 020 degrees QTc Int : 437 ms NORMAL SINUS RHYTHM NORMAL ECG WHEN COMPARED WITH ECG OF 05-NOV-2012 08:53, NO SIGNIFICANT CHANGE WAS FOUND Confirmed by ALEJANDRO FRAUSTO MD ([id number]) on 08/20/2019 11:04:10 AM Referred By: Confirmed By:ALEJANDRO FRAUSTO MD
== END 2019-08-19 23:15 | disposition home or self-care (01) ==
LOC: JER 15:46
PROC: 3E033NZ Introduction of Analgesics, Hypnotics, Sedatives into Peripheral Vein, Percutaneous Approach (ICD-10-PCS; principal; 2019-08-19)
PROC: 3E033GC Introduction of Other Therapeutic Substance into Peripheral Vein, Percutaneous Approach (ICD-10-PCS; 2019-08-19)
PROC: 3E033GC Introduction of Other Therapeutic Substance into Peripheral Vein, Percutaneous Approach (ICD-10-PCS; 2019-08-19)
DX: S09.8XXA Other specified injuries of head, initial encounter (principal); R55 Syncope and collapse; R42 Dizziness and giddiness; R51 Headache; W07.XXXA Fall from chair, initial encounter; R10.31 Right lower quadrant pain; Y93.89 Activity, other specified; Y92.219 Unspecified school as the place of occurrence of the external cause; Y99.0 Civilian activity done for income or pay; Z87.09 Personal history of other diseases of the respiratory system; Z87.442 Personal history of urinary calculi; Z90.79 Acquired absence of other genital organ(s)
CPT/HCPCS: 36415; 70450-TC; 74177-TC; 76830-TC; 80053; 81003; 83690; 84484; 84703; 85025; 85610; 85730; 93005; 93010; 99284-25; J0131

== ENCOUNTER 2020-12-20 22:06 | Emergency (ER) | payer BC, OTHER ==
[2020-12-20 22:10] VITALS: BP 161/92; PULSE 92; TEMP 98.6; BMI 46.5
[2020-12-21] MEDS ORDERED: LACTATED RINGERS SOLUTION 1000 ML INFUS.BAG IV ONE (01:25)
[2020-12-21 02:00] LABS: BASO % 1.1 % (0-2.0); EOS % 3.1 % (0-4.5); HEMATOCRIT 36.6 % (32.4-45.2); HEMOGLOBIN 12.1 GM/dL (10.7-15.3); LYMPH % 27.9 % (8-40); MCH 27.3 pg (25.7-33.7); MCHC 33.2 g/dl (32.0-36.0); MEAN CELL VOLUME 82.4 fl (80-96); MONO % 6.1 % (3.8-10.2); NEUT % 61.8 % (42.8-82.8); PLATELET COUNT 332 K/MM3 (134-434); RBC 4.44 M/mm3 (3.60-5.2); RDW 15.8 % (11.6-15.6); WHITE BLOOD COUNT 11.5 K/mm3 (4.0-10.0)
[2020-12-21 02:04] LABS: INR 1.09 (0.83-1.09); PROTHROMBIN TIME (PATIENT) 13.2 SEC (9.7-13.0)
[2020-12-21 02:06] LABS: ACTIVATED PTT 29.4 SECONDS (25.2-36.5)
[2020-12-21 02:23] LABS: POTASSIUM 3.9 mmol/L (3.5-5.1)
[2020-12-21 02:25] LABS: CALCIUM 9.2 mg/dL (8.5-10.1)
[2020-12-21 02:26] LABS: ALBUMIN 3.6 g/dl (3.4-5.0); BLOOD UREA NITROGEN 9.6 mg/dL (7-18)
[2020-12-21 02:29] LABS: CREATININE 0.7 mg/dL (0.55-1.3)
[2020-12-21 02:32] LABS: BILIRUBIN,TOTAL 0.3 mg/dL (0.2-1); TOT PROT 7.4 g/dl (6.4-8.2)
[2020-12-21 04:57] LABS: PH,URINE 5.5 (5.0-8.0); URINE APPEARANCE CLEAR; URINE BILIRUBIN NEGATIVE (NEGATIVE); URINE COLOR YELLOW; URINE GLUCOSE (UA) NEGATIVE (NEGATIVE); URINE KETONE NEGATIVE (NEGATIVE); URINE LEUK ESTERASE NEGATIVE (NEGATIVE); URINE NITRITE NEGATIVE (NEGATIVE); URINE PROTEIN NEGATIVE (NEGATIVE); URINE UROBILINOGEN 0.2 mg/dL (0.2-1.0)
== END 2020-12-21 05:54 | disposition home or self-care (01) ==
LOC: JER 22:06
DX: K92.1 Melena (principal); K64.9 Unspecified hemorrhoids
CPT/HCPCS: 36415; 74177-TC; 80053; 81003; 82272; 83605; 83690; 84703; 85025; 85610; 85730; 87077; 87086; 99285-25; Q9967

== ENCOUNTER 2021-01-13 04:33 | Day surgery (SDC) | payer BC ==
[2021-01-12 15:30] VITALS: BMI 45.1
[2021-01-13 10:33] VITALS: TEMP 97.8
[2021-01-13 10:58] VITALS: PULSE 76
[2021-01-13 11:40] VITALS: BP 123/70
== END 2021-01-13 11:40 | disposition home or self-care (01) ==
LOC: JASU-ENDO 04:33
PROVIDERS: ATTEND Internal Medicine Gastroenterology
PROC: 0DJD8ZZ Inspection of Lower Intestinal Tract, Via Natural or Artificial Opening Endoscopic (ICD-10-PCS; principal; 2021-01-13 10:00)
DX: K64.8 Other hemorrhoids (principal); K62.5 Hemorrhage of anus and rectum
CPT/HCPCS: 81025

== ENCOUNTER 2021-04-18 06:20 | Inpatient (IN) | payer BC ==
[2021-04-12 10:29] VITALS: BMI 46.7
[~2021-04-18 06:20] MED LIST changes: +BUPIVACAINE HCL/PF 0.25% (2.5MG/ML) 10 ML VIAL IJ ONE; -ceFAZolin SODIUM 1 GM VIAL IVPB ONE
[2021-04-18] MEDS ORDERED: fentaNYL CITRATE 250 MCG/5 ML VIAL ONE (07:11)
[2021-04-18] MEDS ORDERED: PROPOFOL 20 ML ONE ×2 (07:11)
[2021-04-18] MEDS ORDERED: ONDANSETRON 4 MG/2 ML VIAL ONE ×3 (07:12→10:34)
[2021-04-18] MEDS ORDERED: ROCURONIUM BROMIDE 50 MG/5 ML SYRINGE ONE (07:12)
[2021-04-18] MEDS ORDERED: DEXAMETHASONE SOD PHOSPHATE 4 MG/1 ML VIAL ONE ×2 (07:12→08:49)
[2021-04-18] MEDS ORDERED: SUCCINYLCHOLINE CHLORIDE 200 MG/10 ML SYRINGE ONE (07:12)
[2021-04-18] MEDS ORDERED: LIDOCAINE HCL/PF 2% SDV 5ML VIAL ONE (07:12)
[2021-04-18] MEDS ORDERED: ceFAZolin SODIUM 1 GM VIAL ONE ×2 (07:12→08:30)
[2021-04-18] MEDS ORDERED: BUPIVACAINE LIPOSOME/PF (EXPAREL) 266 MG/20 ML VIAL ONE (07:22)
[2021-04-18] MEDS ORDERED: MIDAZOLAM HCL 2 MG/2 ML SINGLE DOSE VIAL ONE (07:22)
[2021-04-18] MEDS ORDERED: BUPIVACAINE HCL/PF 0.5% (5 MG/ML) 30 ML VIAL IJ ONE (07:22)
[2021-04-18] MEDS ORDERED: LACTATED RINGERS SOLUTION 1,000 ML IV SCH (08:00)
[2021-04-18] MEDS ORDERED: GLYCOPYRROLATE 0.2 MG/1 ML VIAL ONE (09:29)
[2021-04-18] MEDS ORDERED: NEOSTIGMINE METHYLSULFATE 0.5 MG/1 ML - 10 ML MDV ONE (09:29)
[2021-04-18] MEDS ORDERED: BUPIVACAINE HCL/PF 0.25% (2.5MG/ML) 10 ML VIAL IJ ONE (09:29)
[2021-04-18] MEDS ORDERED: FLUMAZENIL 0.5 MG/5 ML VIAL ONE (09:33)
[2021-04-18] MEDS: METOCLOPRAMIDE HCL INJECTION 10 MG/2 ML VIAL IVPUSH SCH ×3 (09:55→21:11)
[2021-04-18] MEDS ORDERED: FAMOTIDINE 20 MG PREMIXED IVPB IVPB ONE (10:00)
[2021-04-18] MEDS: ACETAMINOPHEN 1000 MG/100 ML VIAL (NON FORMULARY) IVPB SCH ×3 (10:10→21:23)
[2021-04-18 10:23] LABS: HEMATOCRIT 38.3 % (32.4-45.2); MCH 28.5 pg (25.7-33.7); MCHC 33.8 g/dl (32.0-36.0); MEAN CELL VOLUME 84.1 fl (80-96); MEAN PLT VOLUME 8.6 fl (7.5-11.1); PLATELET COUNT 301 K/MM3 (134-434); RBC 4.55 M/mm3 (3.60-5.2); RDW 14.2 % (11.6-15.6); WHITE BLOOD COUNT 11.3 K/mm3 (4.0-10.8)
[2021-04-18] MEDS: ONDANSETRON 4 MG/2 ML VIAL IVPUSH PRN ×2 (10:25→15:26)
[2021-04-18 10:31] LABS: ALBUMIN 3.6 g/dl (3.4-5.0); BILIRUBIN,TOTAL 0.4 mg/dl (0.2-1); CALCIUM 8.2 mg/dl (8.5-10); CREATININE 0.8 mg/dl (0.55-1.3)
[2021-04-18] MEDS: HYDROmorphone HCL/PF 1 MG/ML VIAL IVPB PRN (17:36)
[2021-04-18] MEDS: ONDANSETRON 4 MG/2 ML VIAL IVPUSH SCH ×2 (18:37→21:11)
[2021-04-18] MEDS: FAMOTIDINE 20 MG/50 ML IVPB 20 MG/50 ML MG IVPB SCH (21:10)
[2021-04-18] MEDS: ENOXAPARIN NA (PORCINE) 40 MG/0.4 ML DISP.SYRIN SQ SCH (21:12)
[2021-04-19] MEDS: ONDANSETRON 4 MG/2 ML VIAL IVPUSH SCH ×5 (02:01→09:49)
[2021-04-19] MEDS: HYDROmorphone HCL/PF 1 MG/ML VIAL IVPB PRN ×2 (02:09→09:50)
[2021-04-19] MEDS: ACETAMINOPHEN 1000 MG/100 ML VIAL (NON FORMULARY) IVPB SCH (03:50)
[2021-04-19] MEDS: METOCLOPRAMIDE HCL INJECTION 10 MG/2 ML VIAL IVPUSH SCH ×2 (03:50→09:49)
[2021-04-19 07:30] LABS: HEMATOCRIT 33.8 % (32.4-45.2); MCH 27.9 pg (25.7-33.7); MCHC 32.6 g/dl (32.0-36.0); MEAN CELL VOLUME 85.6 fl (80-96); PLATELET COUNT 260 K/MM3 (134-434); RBC 3.95 M/mm3 (3.60-5.2)
[2021-04-19 07:47] LABS: ALBUMIN 2.9 g/dl (3.4-5.0); BILIRUBIN,TOTAL 0.5 mg/dl (0.2-1); CALCIUM 8.1 mg/dl (8.5-10); CREATININE 0.6 mg/dl (0.55-1.3); TOT PROT 5.8 g/dl (6.4-8.2)
[2021-04-19] MEDS: SODIUM CHLORIDE 1,000 ML IV SCH ×2 (08:25→09:49)
[2021-04-19] MEDS: FAMOTIDINE 20 MG/50 ML IVPB 20 MG/50 ML MG IVPB SCH ×2 (08:25→09:48)
[2021-04-19 09:48] VITALS: BP 125/65; PULSE 87; TEMP 98.6
[2021-04-19] MEDS: ENOXAPARIN NA (PORCINE) 40 MG/0.4 ML DISP.SYRIN SQ SCH (09:48)
== END 2021-04-19 13:17 | disposition home or self-care (01) | DRG 621 ==
LOC: FM/S 06:20
PROVIDERS: ADMIT Surgery; ATTEND Surgery
PROC: 0DB64Z3 Excision of Stomach, Percutaneous Endoscopic Approach, Vertical (ICD-10-PCS; principal; 2021-04-18 08:39)
PROC: 0FB24ZX Excision of Left Lobe Liver, Percutaneous Endoscopic Approach, Diagnostic (ICD-10-PCS; 2021-04-18 08:39)
DX: E66.01 Morbid (severe) obesity due to excess calories (principal); Z68.42 Body mass index [BMI] 45.0-49.9, adult; R16.0 Hepatomegaly, not elsewhere classified; E03.9 Hypothyroidism, unspecified
CPT/HCPCS: 36415; 74240-TC-FY; 80053; 81025; 85027; 94760; J0131; Q9967

== ENCOUNTER 2023-06-23 12:25 | Emergency (ER) | payer BC ==
[2023-06-23 12:46] VITALS: BMI 39.4
[2023-06-23] MEDS ORDERED: ACETAMINOPHEN 1000 MG/100 ML BAG IVPB ONE (12:56)
[2023-06-23] MEDS ORDERED: ACETAMINOPHEN INJECTION 100 ML IVPB ONE (12:59)
[2023-06-23] MEDS ORDERED: LACTATED RINGERS SOLUTION 1000 ML INFUS.BAG IV ONE (13:00)
[2023-06-23] MEDS ORDERED: ALBUTEROL SO4 2.5/IPRATROPIUM 0.5 INH SOL 3 ML VIAL.NEB. NEB ONE (13:08)
[2023-06-23] MEDS: ALBUTEROL SO4 2.5/IPRATROPIUM 0.5 INH SOL 3 ML VIAL.NEB. NEB SCH (13:21)
[2023-06-23 13:24] LABS: BASO % 0.3 % (0-2.0); EOS % 0.5 % (0-4.5); HEMATOCRIT 38.8 % (32.4-45.2); HEMOGLOBIN 12.9 GM/dL (10.7-15.3); LYMPH % 20.2 % (8-40); MCH 27.7 pg (25.7-33.7); MCHC 33.3 g/dl (32.0-36.0); MEAN CELL VOLUME 83.2 fl (80-96); MEAN PLT VOLUME 8.4 fl (7.5-11.1); MONO % 3.3 % (3.8-10.2); NEUT % 75.7 % (42.8-82.8); PLATELET COUNT 312 10^3/uL (134-434); RBC 4.66 M/mm3 (3.60-5.2); WHITE BLOOD COUNT 7.9 K/mm3 (4.0-10.0)
[2023-06-23 13:34] LABS: CHLORIDE 110 mmol/L (98-107); POTASSIUM 3.8 mmol/L (3.5-5.1); SODIUM 141 mmol/L (136-145)
[2023-06-23 13:36] LABS: ANION GAP 7 MMOL/L (8-16); BLOOD UREA NITROGEN 9.7 mg/dL (7-18); CALCIUM 8.7 mg/dL (8.5-10.1); CO2 24 mmol/L (21-32)
[2023-06-23 13:37] LABS: ALBUMIN 3.3 g/dl (3.4-5.0); GLUCOSE,RANDOM 133 mg/dL (74-106)
[2023-06-23 13:40] LABS: CREATININE 0.8 mg/dL (0.55-1.3); SGOT/AST 13 U/L (15-37); SGPT/ALT 19 U/L (13-61)
[2023-06-23 13:41] LABS: BILIRUBIN,TOTAL < 0.1 mg/dL (0.2-1)
[2023-06-23 13:42] LABS: ALK PHOS 125 U/L (45-117)
[2023-06-23] MEDS ORDERED: IBUPROFEN 400 MG TABLET (FP) PO ONE ×2 (14:18→14:25)
[2023-06-23] MEDS ORDERED: guaiFENesin 200 MG/10 ML 10 ML UNIT-DOSE CUPS PO ONE (14:26)
[2023-06-23] MEDS ORDERED: guaiFENesin 200 MG/10 ML 10 ML UNIT-DOSE CUPS ONE (15:44)
[2023-06-23 16:09] VITALS: BP 115/70; PULSE 105; RESP 18; TEMP 97.8
== END 2023-06-23 17:21 | disposition home or self-care (01) ==
LOC: JER 12:25
PROC: 3E033NZ Introduction of Analgesics, Hypnotics, Sedatives into Peripheral Vein, Percutaneous Approach (ICD-10-PCS; principal; 2023-06-23)
PROC: 3E0F7GC Introduction of Other Therapeutic Substance into Respiratory Tract, Via Natural or Artificial Opening (ICD-10-PCS; 2023-06-23)
DX: U07.1 COVID-19 (principal); J45.901 Unspecified asthma with (acute) exacerbation
CPT/HCPCS: 0241U-QW; 36415; 71045-TC-FY; 71275-TC; 80053; 84484; 84703; 85025; 93005; 93010; 99285-25; Q9967

== ENCOUNTER 2024-06-13 09:37 | Emergency (ER) | payer BC ==
[2024-06-13] MEDS ORDERED: ACETAMINOPHEN INJECTION 100 ML IVPB ONE (10:28)
[2024-06-13] MEDS ORDERED: ONDANSETRON 4 MG/2 ML VIAL ONE (10:28)
[2024-06-13] MEDS ORDERED: FAMOTIDINE 20 MG/50 ML IVPB 20 MG/50 ML MG IVPB ONE (10:28)
[2024-06-13 10:30] VITALS: BP 124/90; PULSE 79; RESP 18; TEMP 97.8
[2024-06-13] MEDS: SODIUM CHLORIDE 1,000 ML IV STA (10:48)
[2024-06-13] MEDS: ONDANSETRON 4 MG/2 ML VIAL IVPUSH ONE (10:48)
[2024-06-13] MEDS: FAMOTIDINE 20 MG/50 ML IVPB 20 MG/50 ML MG IVPB ONE (10:48)
[2024-06-13] MEDS: ACETAMINOPHEN 1000 MG/100 ML BAG IVPB ONE (10:48)
[2024-06-13] MEDS ORDERED: MECLIZINE HCL 25 MG TABLET (FP) ONE (10:59)
[2024-06-13] MEDS: MECLIZINE HCL 25 MG TABLET (FP) PO ONE (11:00)
[2024-06-13 11:05] LABS: BASO % 0.8 % (0-2.0); EOS % 1.1 % (0-4.5); HEMATOCRIT 39.7 % (32.4-45.2); HEMOGLOBIN 13.2 GM/dL (10.7-15.3); LYMPH % 16.6 % (8-40); MCH 27.6 pg (25.7-33.7); MCHC 33.3 g/dl (32.0-36.0); MEAN CELL VOLUME 82.9 fl (80-96); MEAN PLT VOLUME 8.1 fl (7.5-11.1); MONO % 3.6 % (3.8-10.2); NEUT % 77.9 % (42.8-82.8); PLATELET COUNT 314 10^3/uL (134-434); RBC 4.79 M/mm3 (3.60-5.2); RDW 14.1 % (11.6-15.6); WHITE BLOOD COUNT 9.2 K/mm3 (4.0-10.0)
[2024-06-13 11:24] LABS: CHLORIDE 106 mmol/L (98-107); SODIUM 138 mmol/L (136-145)
[2024-06-13 11:26] LABS: BLOOD UREA NITROGEN 6.3 mg/dL (7-18); CALCIUM 9.1 mg/dL (8.5-10.1)
[2024-06-13 11:27] LABS: ALBUMIN 3.8 g/dl (3.4-5.0); ANION GAP 6 mmol/L (4-13); CO2 26 mmol/L (21-32); GLUCOSE,RANDOM 93 mg/dL (74-106); MAGNESIUM 2.2 mg/dL (1.8-2.4)
[2024-06-13 11:29] LABS: SGPT/ALT 19 U/L (13-61)
[2024-06-13 11:30] LABS: CREATININE 0.8 mg/dL (0.55-1.3); SGOT/AST 12 U/L (15-37)
[2024-06-13 11:31] LABS: BILIRUBIN,TOTAL 0.3 mg/dL (0.2-1); TOT PROT 7.5 g/dl (6.4-8.2)
[2024-06-13 11:32] LABS: ALK PHOS 124 U/L (45-117)
[2024-06-13 11:40] VITALS: BMI 39.9
[2024-06-13] MEDS ORDERED: KETOROLAC TROMETHAMINE 15 MG/ML VIAL ONE (13:19)
[2024-06-13] MEDS: KETOROLAC TROMETHAMINE 15 MG/ML VIAL IVPUSH ONE (13:28)
== END 2024-06-13 13:30 | disposition home or self-care (01) ==
LOC: JER 09:37
PROC: 3E033GC Introduction of Other Therapeutic Substance into Peripheral Vein, Percutaneous Approach (ICD-10-PCS; principal; 2024-06-13)
PROC: 3E033GC Introduction of Other Therapeutic Substance into Peripheral Vein, Percutaneous Approach (ICD-10-PCS; 2024-06-13)
PROC: 3E033NZ Introduction of Analgesics, Hypnotics, Sedatives into Peripheral Vein, Percutaneous Approach (ICD-10-PCS; 2024-06-13)
PROC: 3E0333Z Introduction of Anti-inflammatory into Peripheral Vein, Percutaneous Approach (ICD-10-PCS; 2024-06-13)
DX: R07.89 Other chest pain (principal); R11.0 Nausea; R19.7 Diarrhea, unspecified
CPT/HCPCS: 36415; 71045-TC-FY; 80053; 83735; 84439; 84443; 84484; 84703; 85025; 93005; 93010; 99285-25; J0131

== ENCOUNTER 2024-07-21 04:44 | Day surgery (SDC) | payer BC ==
[2024-07-17 16:43] VITALS: BMI 39.9
[2024-07-21] MEDS ORDERED: PROPOFOL 20 ML ONE ×2 (09:51→10:47)
[2024-07-21] MEDS ORDERED: KETOROLAC TROMETHAMINE 30 MG/1 ML VIAL ONE (09:52)
[2024-07-21] MEDS ORDERED: ceFAZolin SODIUM 1 GM VIAL ONE (09:52)
[2024-07-21] MEDS ORDERED: DEXAMETHASONE SOD PHOSPHATE 4 MG/1 ML VIAL ONE (09:52)
[2024-07-21] MEDS ORDERED: ONDANSETRON 4 MG/2 ML VIAL ONE (09:52)
[2024-07-21] MEDS ORDERED: MIDAZOLAM HCL 2 MG/2 ML SINGLE DOSE VIAL ONE (09:53)
[2024-07-21] MEDS ORDERED: SUCCINYLCHOLINE CHLORIDE 200 MG/10 ML SYRINGE ONE (09:54)
[2024-07-21] MEDS: ceFAZolin SODIUM 1 GM VIAL IVPB ONE ×2 (10:12)
[2024-07-21] MEDS ORDERED: ACETAMINOPHEN INJECTION 100 ML ONE (10:41)
[2024-07-21] MEDS: LACTATED RINGERS SOLUTION 1,000 ML IV SCH (11:13)
[2024-07-21 13:23] VITALS: RESP 20; TEMP 97.5
[2024-07-21] MEDS: oxyCODONE HCL 5 MG TABLET PO PRN (14:00)
[2024-07-21] MEDS ORDERED: oxyCODONE HCL 5 MG TABLET ONE (14:05)
[2024-07-21 14:26] VITALS: BP 110/75; PULSE 82
== END 2024-07-21 14:55 | disposition home or self-care (01) ==
LOC: JASU-SURG 04:44
PROVIDERS: ATTEND Obstetrics & Gynecology
PROC: 0U5B7ZZ Destruction of Endometrium, Via Natural or Artificial Opening (ICD-10-PCS; principal; 2024-07-21 09:00)
PROC: 0UDB8ZZ Extraction of Endometrium, Via Natural or Artificial Opening Endoscopic (ICD-10-PCS; 2024-07-21 09:00)
DX: N92.0 Excessive and frequent menstruation with regular cycle (principal)
CPT/HCPCS: 81025; 88305-TC; 94760; J0131